=== PATIENT | female | born 1990 | race Two or more races ===

== ENCOUNTER 2019-12-27 09:34 | Emergency (ER) | payer OTHER ==
[~2019-12-27] VITALS: Ht 149.9 cm; Wt 77.6 kg
--- NOTE | 2019-12-27 09:50 | NUR ---
Patient discharged to home in stable condition. Written and verbal after care instructions given. Patient verbalizes understanding of instructions. Stressed follow up or return to ER for worsening s/s.
== END 2019-12-27 10:02 | disposition home or self-care (01) ==
LOC: ER 09:34
DX: Z09 Encounter for follow-up examination after completed treatment for conditions other than malignant neoplasm (principal); Z86.19 Personal history of other infectious and parasitic diseases
CPT/HCPCS: A4663